=== PATIENT | male | born 1980 | race Caucasian/White ===

== ENCOUNTER 2021-06-04 10:30 | Day surgery (SDC) | payer OTHER ==
[2021-06-02 13:40] VITALS: BMI 26.7
[2021-06-04] MEDS ORDERED: Bupivacaine PF 0.5% 30 ML VIAL ONE (13:10)
[2021-06-04] MEDS ORDERED: Lidocaine 2% 20 ml MDV ONE (13:10)
[2021-06-04] MEDS ORDERED: Neomycin-Polymyxin 1 ML AMP ONE (13:11)
[2021-06-04] MEDS ORDERED: PROPOFOL 20 ML ONE (13:22)
[2021-06-04] MEDS ORDERED: ceFAZolin 2 GM/DEX 5% 100 ML BAG ONE (13:22)
[2021-06-04] MEDS ORDERED: Dexamethasone 20 MG/5 ML VIAL ONE (13:23)
[2021-06-04] MEDS ORDERED: Ondansetron PF 4 MG/2 ML Vial ONE (13:23)
[2021-06-04] MEDS ORDERED: Fentanyl 100 MCG/2 ML VIAL ONE (13:23)
[2021-06-04] MEDS ORDERED: Midazolam HCl 2 mg/2 ml Vial ONE (13:23)
[2021-06-04] MEDS ORDERED: Lidocaine 1% PF 5 ML VIAL ONE (13:23)
[2021-06-04] MEDS ORDERED: Ketorolac Tromethamine 30 MG/ML VIAL ONE (13:23)
== END 2021-06-04 15:00 | disposition home or self-care (01) ==
LOC: CSHSDC 10:30
PROVIDERS: ATTEND Podiatrist Foot & Ankle Surgery
PROC: 0JNR0ZZ Release Left Foot Subcutaneous Tissue and Fascia, Open Approach (ICD-10-PCS; principal; 2021-06-04)
DX: M72.2 Plantar fascial fibromatosis (principal); Z79.899 Other long term (current) drug therapy; E03.9 Hypothyroidism, unspecified
CPT/HCPCS: J1100; J1885; J2250; J2405; J2704; J3010; S0020

== ENCOUNTER 2023-06-23 10:04 | Day surgery (SDC) | payer OTHER ==
[2023-06-21 16:22] VITALS: BMI 29.8
[2023-06-23] MEDS ORDERED: Bupivacaine PF 0.5% 30 ML VIAL ONE (11:42)
[2023-06-23] MEDS ORDERED: CEFAZOLIN 2 GM VIAL ONE (11:49)
[2023-06-23] MEDS ORDERED: fentaNYL 50 mcg/mL 1 mL Vial ONE (12:06)
[2023-06-23] MEDS ORDERED: Ketorolac Tromethamine 30 MG/ML VIAL ONE (12:06)
[2023-06-23] MEDS ORDERED: Dexamethasone 4 mg/ml Vial ONE (12:06)
[2023-06-23] MEDS ORDERED: Ondansetron PF 4 MG/2 ML Vial ONE (12:06)
[2023-06-23] MEDS ORDERED: Lidocaine 2% PF 5 ML VIAL ONE (12:06)
[2023-06-23] MEDS ORDERED: PROPOFOL 40 ML ONE (12:06)
== END 2023-06-23 13:40 | disposition home or self-care (01) ==
LOC: CSHSDC 10:04
PROVIDERS: ATTEND Podiatrist Foot & Ankle Surgery
PROC: 0J8Q0ZZ Division of Right Foot Subcutaneous Tissue and Fascia, Open Approach (ICD-10-PCS; principal; 2023-06-23)
DX: M72.2 Plantar fascial fibromatosis (principal); J45.909 Unspecified asthma, uncomplicated; E03.9 Hypothyroidism, unspecified; Z86.16 Personal history of COVID-19; Z88.1 Allergy status to other antibiotic agents
CPT/HCPCS: J1100; J1885; J2001; J2405; J2704; J3010; S0020